=== PATIENT | male | born 1960 | race Caucasian/White ===

== ENCOUNTER 2016-11-02 09:06 | Emergency (ER) | payer OTHER ==
--- NOTE | 2016-11-02 10:01 | UC ---
Respiratory Complaint HPI - HPI Summary HPI Summary: Angie a tickle in his throat starting 1 month ago/. Has continued to have a throat-clearing cough since then, sometimes productive and sometimes not. Took 7 days of augmentin in September without relief. Had about a week of significant laryngitis, then it cleared up, now laryngitis is coming back. Denies trouble breathing, fever, nasal congestion, sneezing, itchy eyes, or other symptoms. - History of Current Complaint Chief Complaint: UCRespiratory Stated Complaint: COUGH Time Seen by Provider: 11/02/16 09:44 Hx Obtained From: Patient Onset/Duration: Gradual Onset, Lasting Weeks Timing: Constant Severity Initially: Mild Severity Currently: Mild Character: Cough: Nonproductive Aggravating Factors: Nothing Alleviating Factors: Nothing Associated Signs And Symptoms: Positive: Hoarseness. Negative: Fever, Chills, Nasal Congestion - Allergies/Home Medications Allergies/Adverse Reactions: Allergies Allergy/AdvReac Type Severity Reaction Status Date / Time Indomethacin [From Indocin] Allergy Severe Anaphylatic Verified 06/16/16 15:20 Shock Gabapentin [From Neurontin] Allergy Rash Verified 06/16/16 15:20 PMH/Surg Hx/FS Hx/Imm Hx Endocrine History: Diabetes Cardiovascular History: Cardiac Disease Other Cancer History: multiple myeloma Other History Of: Anticoagulant Therapy - xeralto - Surgical History Surgical History: Yes Surgery Procedure, Year, and Place: bilat hip surgeries - arthroscopic; septoplasty;bilat knee ([id number]);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; 4 CYPHER STENTS CONDITIONAL 5 UP TO 500 G/CM 1.5T ONLY-3 XIENCE V UP TO 720 G/CM; PVD-[employer] SECR[employer]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/2014 - Family History Known Family History: Positive: Hypertension - Social History Lives: With Family Alcohol Use: Rare Substance Use Type: None Smoking Status (MU): Former Smoker Type: Cigarettes Amount Used/How Often: 1 PPD X 28-30 YEARS Have You Smoked in the Last Year: No When Did the Patient Quit Smoking/Using Tobacco: 08/2013 Household Exposure Type: Cigarettes - Immunization History Most Recent Influenza Vaccination: Fall 2013 Most Recent Tetanus Shot: 2014 Most Recent Pneumonia Vaccination: 2014 Review of Systems Constitutional: Negative Skin: Negative Eyes: Negative ENT: Sore Throat Respiratory: Cough Cardiovascular: Negative Gastrointestinal: Negative Genitourinary: Negative Motor: Negative Neurovascular: Negative Musculoskeletal: Negative Neurological: Negative Psychological: Negative All Other Systems Reviewed And Are Negative: Yes Physical Exam Triage Information Reviewed: Yes Appearance: Well-Appearing, No Pain Distress, Obese Vital Signs: Initial Vital Signs Temp 98 F 11/02/16 09:09 Pulse 91 11/02/16 09:09 Resp 17 11/02/16 09:09 Pulse Ox 99 11/02/16 09:09 Vital Signs Reviewed: Yes Eye Exam: Normal Eyes: Positive: Conjunctiva Clear ENT: Positive: Hearing grossly normal, Pharynx normal, TMs normal, Muffled/ hoarse voice - hoarseness. Negative: Tonsillar swelling, Tonsillar exudate Dental Exam: Normal Neck exam: Normal Neck: Positive: Supple, Nontender, No Lymphadenopathy Respiratory: Positive: Chest non-tender, Lungs clear, Normal breath sounds, No respiratory distress, No accessory muscle use Cardiovascular Exam: Normal Cardiovascular: Positive: RRR, No Murmur Musculoskeletal Exam: Normal Neurological Exam: Normal Neurological: Positive: Alert Psychological Exam: Normal Skin Exam: Normal UC Diagnostic Evaluation - Laboratory O2 Sat by Pulse Oximetry: 99 Respiratory Course/Dx - Differential Dx/Diagnosis Provider Diagnoses: acute cough. laryngitis Discharge - Discharge Plan Condition: Stable Disposition: HOME Prescriptions: Famotidine TAB 40 MG(NF) [Pepcid TAB 40 MG(NF)] 40 mg PO DAILY #30 tab Patient Education Materials: Acute Cough (ED), Laryngitis (ED) Referrals: Ancelmo Lord MD [Primary Care Provider] - Darrin Montilla MD [Medical Doctor] - 2 Weeks Additional Instructions: I have increased your dose of pepcid because sometimes silent reflux is a cause of cough. You should be evaluated by an ENT to make sure there are no problems in your throat or upper airway.
--- NOTE | 2016-11-02 10:15 | RAD ---
HISTORY: Cough COMPARISONS: October 02, 2014 VIEWS: 4: Frontal dual-energy and lateral views of the chest. FINDINGS: CARDIOMEDIASTINAL SILHOUETTE: The cardiomediastinal silhouette is normal. WALDEMAR: The waldemar are normal. PLEURA: The costophrenic angles are sharp. No pleural abnormalities are noted. LUNG PARENCHYMA: The lungs are clear. ABDOMEN: The upper abdomen is clear. There is no subphrenic gas. BONES AND SOFT TISSUES: No bone or soft tissue abnormalities are noted. OTHER: None. IMPRESSION: NO ACTIVE CARDIOPULMONARY DISEASE.
== END 2016-11-02 10:31 | disposition home or self-care (01) ==
LOC: UCEAST 09:06
DX: R05 Cough (principal); J04.0 Acute laryngitis; E11.9 Type 2 diabetes mellitus without complications; I51.9 Heart disease, unspecified; Z79.01 Long term (current) use of anticoagulants; Z87.891 Personal history of nicotine dependence
CPT/HCPCS: 71020; 99212; G0463

== ENCOUNTER → 2018-03-26 07:14 | Day surgery (SDC) | payer OTHER ==
[~2018-03-26 07:14] MED LIST: Clopidogrel TAB* 75 MG ONE; Flumazenil* 0.1 MG/ML 5 ML MDV ONE; Heparin 2 UNITS/ML IVPREMIX* 1,000 ML IV ONE; Heparin 2 UNITS/ML IVPREMIX* 2,000 ML IV ONE; Heparin(*) 1000 UNIT/ML 10 ML VIAL CATH LAB IV ONE; Iodixanol 320 (CONTRAST) 100 ML SDV ONE; Iohexol 350 (CONTRAST) 200 ML MDV IV ONE; LORazepam TAB(*) 1 MG ONE; Lidocaine 1% INJ* 10 MG/ML 30 ML SDV ONE; Metoprolol Tartrate IV* 1 MG/ML 5 ML VIAL ONE; Midazolam* 1 MG/ML 10 ML VIAL (10 MG) ONE; Naloxone* 0.4 MG/ML 1 ML VIAL ONE; Ondansetron INJ* 2 MG/ML VIAL ONE; VERAPAMIL 2.5 MG/ML 2 ML VIAL ** 5 mg/2 ml ONE; fentaNYL* 50 MCG/ML 2 ML VIAL (100 MCG VIAL) ONE; fentaNYL* 50 MCG/ML 5 ML VIAL (250 MCG VIAL) ONE; hydrALAZINE IV* 20 MG/ML VIAL ONE; nitroGLYCERIN DRIP* 25,000 MCG/250 ML BTL ONE
[2018-03-26 13:37] VITALS: BP 151/73
== END | disposition home or self-care (01) ==
LOC: CHICATH 07:14
PROVIDERS: ATTEND Radiology Diagnostic Radiology
DX: I70.213 Atherosclerosis of native arteries of extremities with intermittent claudication, bilateral legs (principal); Z79.899 Other long term (current) drug therapy; Z79.01 Long term (current) use of anticoagulants; E11.9 Type 2 diabetes mellitus without complications; I10 Essential (primary) hypertension; E78.5 Hyperlipidemia, unspecified; Z95.5 Presence of coronary angioplasty implant and graft; Z95.1 Presence of aortocoronary bypass graft; Z87.891 Personal history of nicotine dependence
CPT/HCPCS: 76937; 85347; 99156; 99157; A9270-GY; C1724; C1725; C1760; C1769; C1887; C1894; J0360; J1644; J2250; J2310; J2405; J3010; J3490